=== PATIENT | female | born 1950 | race African-American/Black ===

== ENCOUNTER 2023-02-19 18:34 | Emergency (ER) | payer OTHER ==
[2023-02-19 18:46] VITALS: BP 179/90; PULSE 90; RESP 16; TEMP 99; BMI 34.4
[2023-02-19 19:30] LABS: BASO % 0.9 % (0-2.0); EOS % 1.7 % (0-4.5); HEMATOCRIT 41.6 % (32.4-45.2); HEMOGLOBIN 13.9 GM/dL (10.7-15.3); LYMPH % 19.3 % (8-40); MCH 28.5 pg (25.7-33.7); MCHC 33.4 g/dl (32.0-36.0); MEAN CELL VOLUME 85.3 fl (80-96); MEAN PLT VOLUME 9.3 fl (7.5-11.1); NEUT % 69.1 % (42.8-82.8); PLATELET COUNT 265 10^3/uL (134-434); RBC 4.88 M/mm3 (3.60-5.2); RDW 14.2 % (11.6-15.6); WHITE BLOOD COUNT 8.3 K/mm3 (4.0-10.0)
[2023-02-19 19:34] LABS: EPI CELLS >36 /uL (0-25.1); HYALINE CASTS 2 /uL (0-3.1); URINE APPEARANCE CLOUDY; URINE BACTERIA 49 /uL (0-1359); URINE BILIRUBIN NEGATIVE (NEGATIVE); URINE COLOR RED; URINE GLUCOSE (UA) NEGATIVE (NEGATIVE); URINE KETONE NEGATIVE (NEGATIVE); URINE LEUK ESTERASE 2+ (NEGATIVE); URINE NITRITE NEGATIVE (NEGATIVE); URINE PROTEIN 2+ (NEGATIVE); URINE RBC 13878 /uL (0-23.9); URINE UROBILINOGEN 0.2 mg/dL (0.2-1.0); URINE WBC 429 /uL (0-25.8)
[2023-02-19 19:50] LABS: POTASSIUM 4.1 mmol/L (3.5-5.1)
[2023-02-19 19:53] LABS: CALCIUM 9.3 mg/dL (8.5-10.1)
[2023-02-19 19:54] LABS: ALBUMIN 3.5 g/dl (3.4-5.0); BLOOD UREA NITROGEN 12.1 mg/dL (7-18)
[2023-02-19 19:57] LABS: CREATININE 0.8 mg/dL (0.55-1.3)
[2023-02-19 19:58] LABS: TOT PROT 7.6 g/dl (6.4-8.2)
[2023-02-19 19:59] LABS: BILIRUBIN,TOTAL 0.3 mg/dL (0.2-1)
[2023-02-19] MEDS ORDERED: CEFTRIAXONE 1 GM in DEXTROSE 5%-WATER - 50 ML IVPB ONE (21:29)
[2023-02-19] MEDS ORDERED: CEFTRIAXONE 1 GM/50 ML BAG ONE (21:33)
== END 2023-02-19 21:58 | disposition home or self-care (01) ==
LOC: JER 18:34
DX: N30.91 Cystitis, unspecified with hematuria (principal); R30.0 Dysuria; R39.12 Poor urinary stream; R35.0 Frequency of micturition
CPT/HCPCS: 36415; 74176-TC; 80053; 81003; 85025; 87086; 87186; 99284-25